=== PATIENT | female | born 1970 | race Caucasian/White ===

== ENCOUNTER 2018-02-26 17:29 | Emergency (ER) | payer MEDICAID ==
[2018-02-26 17:51] VITALS: RESP 16
--- NOTE | 2018-02-26 18:47 | ED PDOC ---
HPI: Chest Pain Time Seen by Provider: 02/26/18 18:09 Chief Complaint (Nursing): Chest Pain Chief Complaint (Provider): Chest Pain History Per: Patient History/Exam Limitations: no limitations Onset/Duration Of Symptoms: Days (x3), Intermittent Episodes Additional Complaint(s): 48 year old female presents to the ED complaining of intermittent chest pain for 3 days. Patient reports no exacerbating factors and states pain resolved on its own. She denies shortness of breath, trauma, heavy lifting, or recent travel. PMD: none Past Medical History Reviewed: Historical Data, Nursing Documentation, Vital Signs Vital Signs: Last Vital Signs Temp 97.5 F L 02/26/18 17:49 Pulse 87 02/26/18 17:49 Resp 16 02/26/18 17:49 BP 126/68 02/26/18 17:49 Pulse Ox 99 02/26/18 17:49 - Medical History PMH: No Chronic Diseases - Surgical History Surgical History: No Surg Hx - Family History Family History: States: Unknown Family Hx - Home Medications Home Medications: Ambulatory Orders Medication Instructions Recorded Naproxen [Naprosyn] 500 mg PO BID PRN #15 tablet 02/26/18 - Allergies Allergies/Adverse Reactions: Allergies Allergy/AdvReac Type Severity Reaction Status Date / Time No Known Allergies Allergy Verified 02/26/18 17:48 KARTIK Risk Score for UA/NSTEMI - KARTIK Risk Score Age > 64: NO 3 or more CAD Risk Factors: NO Known CAD (Stenosis greater than 50%): NO Aspirin use in past 7 days: NO Severe Angina: NO EKG ST changes greater than 0.5mm: NO Positive Cardiac Marker: NO KARTIK Score: 0 Risk %: 5% Review of Systems ROS Statement: Except As Marked, All Systems Reviewed And Found Negative Cardiovascular: Positive for: Chest Pain Respiratory: Negative for: Shortness of Breath Physical Exam - Reviewed Nursing Documentation Reviewed: Yes Vital Signs Reviewed: Yes - Physical Exam Appears: Positive for: Non-toxic, No Acute Distress Head Exam: Positive for: ATRAUMATIC, NORMOCEPHALIC Skin: Positive for: Normal Color, Warm, Dry Eye Exam: Positive for: Normal appearance Neck: Positive for: Normal, Painless ROM Cardiovascular/Chest: Positive for: Regular Rate, Rhythm, Other (Tenderness to palpation of the left upper lateral chest wall) Respiratory: Positive for: Normal Breath Sounds. Negative for: Wheezing, Res piratory Distress Gastrointestinal/Abdominal: Positive for: Normal Exam, Soft. Negative for: Tenderness Extremity: Positive for: Normal ROM Neurologic/Psych: Positive for: Alert, Oriented. Negative for: Motor/Sensory Deficits - Laboratory Results Result Diagrams: 02/26/18 18:53 02/26/18 18:53 - ECG ECG Rhythm: Positive for: Sinus Rhythm. Negative for: ST/T Changes Rate: 82 O2 Sat by Pulse Oximetry: 99 (RA) Pulse Ox Interpretation: Normal Medical Decision Making Medical Decision Making: Initial Impression: Chest pain Initial Plan: --ECG --CMP --Troponin --ED urine --ED urine dipstick --CBC --D Dimer --PTT --Prothrombin time --Chest X-ray 20:32 Patient is now complaining of right shoulder pain. Will get X-ray. Scribe Attestation: Documented by Burak Boogie acting as a scribe for Becki Paris MD. Provider Scribe Attestation: All medical record entries made by the Scribe were at my direction and per sonally dictated by me. I have reviewed the chart and agree that the record accurately reflects my personal performance of the history, physical exam, medical decision making, and the department course for this patient. I have also personally directed, reviewed, and agree with the discharge instructions and disposition. Disposition - Clinical Impression Clinical Impression: Chest wall pain, Right shoulder pain - Disposition Referrals: [facility] [Outside] Condition: STABLE Prescriptions: Naproxen [Naprosyn] 500 mg PO BID PRN #15 tablet PRN Reason: Pain, Moderate (4-7) Instructions: Chest Pain, Shoulder Pain (DC) Forms: [employer] ([place])
[2018-02-26 19:07] LABS: BASO % 0.5 % (0.0-2.0); EOS # 0.1 K/uL (0.0-0.7); EOS % 0.9 % (0.0-4.0); HEMOGLOBIN 12.9 g/dL (12.0-16.0); LYMPH # 2.3 K/uL (1.0-4.3); LYMPH % 35.5 % (20.0-40.0); MEAN CELL VOLUME 88.3 fl (81.0-99.0); MEAN CORPUSCULAR HEMOGLOBIN 29.6 pg (27.0-31.0); MEAN CORPUSCULAR HGB CONC 33.5 g/dL (33.0-37.0); MEAN PLATELET VOLUME 8.4 fl (7.2-11.7); MONO # 0.5 K/uL (0.0-0.8); MONO % 7.1 % (0.0-10.0); NEUT # 3.7 K/uL (1.8-7.0); RBC 4.37 Mil/uL (3.80-5.20); RED CELL DISTRIBUTION WIDTH 13.2 % (11.5-14.5); WHITE BLOOD COUNT 6.6 K/uL (4.8-10.8)
[2018-02-26 19:15] LABS: ALB/GLOB RATIO 1.3 (1.0-2.1); ALBUMIN 4.2 g/dL (3.5-5.0); ALT/SGPT 17 U/L (9-52); AST/SGOT 27 U/L (14-36); BLOOD UREA NITROGEN 15 mg/dl (7-17); GFR NON-AFRICAN AMERICAN > 60
[2018-02-26 19:54] LABS: D DIMER < 200 ng/mlDDU (0-230)
[2018-02-26 21:41] VITALS: BP 119/71; PULSE 72; TEMP 98; O2SAT 100
[2018-02-27 01:43] LABS: PARTIAL THROMBOPLASTIN TIME 39.5 Seconds (25.6-37.1); PROTHROMBIN TIME 11.8 Seconds (9.8-13.1)
--- NOTE | 2018-02-27 07:32 | RAD ---
Date of service: 02/26/2018 HISTORY: L chest wall pain COMPARISON: None available. TECHNIQUE: Chest PA and lateral FINDINGS: LUNGS: No focal consolidation is seen. PLEURA: No pleural effusion is identified. CARDIOVASCULAR: Heart size is within normal limits. No atherosclerotic calcification present. OSSEOUS STRUCTURES: No significant abnormalities. VISUALIZED UPPER ABDOMEN: Unremarkable. OTHER FINDINGS: None. IMPRESSION: No acute cardiopulmonary process seen.
--- NOTE | 2018-02-27 07:33 | RAD ---
Date of service: 02/26/2018 PROCEDURE: Radiographs of the Right Shoulder HISTORY: Pain COMPARISON: No prior. FINDINGS: BONES: No acute fracture identified. JOINTS: No dislocation seen. Humeral head articulation with the glenoid is maintained. Acromioclavicular joint is unremarkable. SOFT TISSUES: Unremarkable OTHER FINDINGS: Visualized portions of the right lung field are clear. IMPRESSION: No fracture or dislocation identified.
--- NOTE | 2018-02-27 07:59 | CARD ---
APPROVED REPORT Date of service: 02/26/2018 EKG Measurement Heart [id number] <Conclusion> Normal sinus rhythm Possible Left atrial enlargement Borderline ECG
== END 2018-02-26 21:40 | disposition home or self-care (01) ==
LOC: H.ER 17:29
DX: R07.9 Chest pain, unspecified (principal); M25.511 Pain in right shoulder